=== PATIENT | male | born 1985 | race Caucasian/White ===

== ENCOUNTER 2024-07-06 06:03 | Day surgery (SDC) | payer OTHER, SELFPAY ==
[2024-07-06] VITALS (15 sets, daily range): BP systolic 85–146; BP diastolic 46–96; BMI 33.1
[2024-07-06] MEDS: TYLENOL 1000 MG PO (06:38)
[2024-07-06] MEDS: NORMOSOL-R/PLASMALYTE-A 1000 IV (06:39)
--- NOTE | 2024-07-06 07:00 | W.SUR.PREOP ---
Pre-Operative Surgical Note
-
I have examined this patient prior to the performance of the scheduled procedure.
The patient's condition is unchanged from the time of the current History and
Physical and the patient is able to undergo the scheduled procedure.
--- NOTE | 2024-07-06 07:00 | HP.FOC2 ---
Focused History & Physical
Chief Complaint
HPI:
Chief Complaint: Right inguinal hernia
HPI / Indication for Planned Procedure:
This is a 38-year-old male with a chronically incarcerated right inguinal hernia will plan for a robotic repair
Relevant Past Medical History: Negative
Relevant Social History: Negative
Relevant Family History: Negative
Relevant Past Surgical History: Negative
Review of Systems
Review of Pertinent Systems: All Systems Negative
Medication
See Medication form for detailed medications: Yes
Medication List (including Herbals & OTC):
cetirizine 10 mg tablet 10 mg PO DAILY PRN seasonal allergies 06/28/24
ibuprofen 200 mg tablet (Advil) 200 mg PO DAILY PRN pain 06/28/24
Medications Reviewed: Yes
Allergies and Reactions
Patient has Allergies: No
Noted Allergies and Reactions:
Allergy/AdvReac Type Severity Reaction Status Date / Time
No Known Allergies Allergy Verified 07/06/24 06:29
Pertinent Physical Exam
All Other Systems: Negative
Head/Neck: Normal
Diagnosis / Assessment
This is a 38-year-old male with a symptomatic large right incarcerated inguinal hernia
Plan / Procedure
Will plan for robotic right inguinal hernia repair with mesh.
Anesthesia/Sedation to be done by Anesthesia Provider: Yes
--- NOTE | 2024-07-06 09:40 | W.IMMPOSTOP ---
Surgical Immed Post Op Note
-
Primary Surgeon: Elito Patel MD
Assisting Surgeon: None
Pre-op Diagnosis: Incarcerated right inguinal hernia
Post-op Diagnosis: Same
Procedure Performed: Robotic incarcerated right inguinal hernia repair with mesh (MAURO approach)
Anesthesia Type: General
Specimen / Cultures: None
Estimated Blood Loss: 11 cc
Complications: None
Operative Findings: Large incarcerated right scrotal inguinal hernia containing small bowel repaired with an extra-large Bard 3D max mid weight uncoated polypropylene mesh.
--- NOTE | 2024-07-06 09:42 | OR.RPT ---
Operative Report
Operative Report
Patient Name: Adrian Pinzon Jr.
: 1985
Date of Operation: 07/06/2024
Preoperative Diagnosis: Incarcerated right inguinal hernia
Postoperative Diagnosis: Same
Procedure(s):
Robotic incarcerated right inguinal Hernia Repair with mesh, (MAURO approach)
Surgeon(s):
Dr. Patel
Otr Truck Driver(s):
None
Anesthesia: General
Estimated Blood Loss: 11 cc
Urine Output: None
Drains/Lines/Implants: Large 3D Max Bard mid weight uncoated polypropylene mesh
Specimens: None
Indication for surgery: The patient has a history of groin pain and noted on exam to have an incarcerated but not strangulated right inguinal Hernia. Following review of therapeutic options they have elected to undergo a minimally invasive repair.
Operative Findings: Large incarcerated right scrotal inguinal hernia containing small bowel repaired with an extra-large Bard 3D max mid weight uncoated polypropylene mesh.
Details of the operation:
The patient was brought to the Operating Room and placed in the supine position with the arms tucked. IV antibiotics were infused and Venodyne stockings placed. Following uneventful induction of general endotracheal anesthesia, an orogastric tube
was placed. The abdomen was prepped and draped in the usual sterile fashion. The abdomen was entered using a Veress technique which required 1 pass, pneumoperitoneum to 15 mmHg was obtained without difficulty. An 8mm trochar was passed through the
abdominal wall roughly 20 cm cephalad to the inguinal canal. We then confirmed that no inadvertent injury was made while passing the trocar or Veress needle. We then placed two additional 8 mm ports in the left upper and right upper quadrants. We
then docked the robot with a Prograsper in the left hand port and monopolar scissors in the right. A right indirect inguinal hernia was identified containing small bowel, no defect was noted on the left. With gentle traction we were able to reduce
the small bowel, there was some free fluid/edema that reduced with this. The bowel was viable and no injury occurred during this maneuver. We then began by creating a flap at the level of the ASIS laterally working our way medially to the medial
umbilical fold. Staying onto the peritoneum we were able to circumferentially dissect around the very large hernia sac and and peel it off of the underlying spermatic cord and testicular vessels, taking care to preserve them. Medially we
identified the midline pubis as well as Vaibhav's ligament and ensured to dissect 2 cm below the pubic rim over the bladder. His tissues were fairly inflamed and bled easily. A 4 x 4 Ray-Tyler was inserted to help mop up any blood and improve
exposure of the brown tissue planes. 1 g of TXA was administered during the procedure. After exposure of the entire myopectineal orifice we identified and reduced: A very large sized indirect inguinal hernia, no direct inguinal hernia, no femoral
hernia, and no cord lipoma.
We then fixated a large 3D max mesh with a 2-0 Vicryl stitch at coopers medially and superior laterally. The flap was then closed with a running 2-0 barbed monocryl suture ensuring that the tail was cut flush with the medial fat pad so that no
barbs were exposed. During the closure of the flap an Angiocath was inserted and 20 cc of quarter percent Marcaine was instilled. The area in the flap cavity was then evacuated of air confirming that the mesh was flush and there were no folds. A
few rents in the peritoneum that occurred during the dissection were closed with 2-0 Vicryl sutures. The Ray-Tyler and all needles/instruments were then removed and the robot was undocked. The abdomen was then desufflated, and pneumoperitoneum
evacuated. All skin sites were then closed with 4-0 Monocryl followed by Dermabond. Counts were correct and overall, the patient tolerated the procedure well and was taken to the Recovery Room postoperatively in stable condition.
I was the attending physician and performed the procedure with no assistance. I was present for all portions of the case.
Eliot Patel MD
--- NOTE | 2024-07-06 09:50 | SUR.PHASEI ---
Dr. Nayak notified about BP in the 80's. Denies feeling lightheaded or dizzy. No new orders. OKay to give Dilaudid. Will continue to monitor
[2024-07-06] MEDS: DILAUDID 0.5 MG IV (09:53)
[2024-07-06] MEDS: MOTRIN 600 MG PO (10:55)
[2024-07-06] MEDS: ROXICODONE 5 MG PO (11:25)
== END 2024-07-06 12:35 | disposition home or self-care (01) ==
LOC: SDS 06:03
PROVIDERS: ATTENDING PHYSICIAN Surgery
DX: K40.30 Unilateral inguinal hernia, with obstruction, without gangrene, not specified as recurrent (principal)
CPT/HCPCS: 49650; C1781